=== PATIENT | male | born 1965 | race Hispanic/Latino ===

== ENCOUNTER 2019-08-18 10:40 | Emergency (ER) | payer OTHER ==
[~2019-08-18] VITALS: Ht 165.1 cm; Wt 68.0 kg
--- NOTE | 2019-08-18 11:57 | Diagnostic Imaging Report ---
EXAMINATION: CHEST SINGLE (PORTABLE) INDICATION: Pneumonia, cough COMPARISON: None FINDINGS: LINES/TUBES:None LUNGS:The lungs are moderately inflated. Extensive multifocal predominantly peripheral consolidative airspace opacities. PLEURA:No pleural effusion or pneumothorax. MEDIASTINUM:The cardiomediastinal silhouette appears normal in size and shape. BONES/SOFT TISSUES:No acute osseous injury. ABDOMEN:No free air under the diaphragm. IMPRESSION: Extensive multifocal predominantly peripheral consolidative airspace opacities concerning for multifocal pneumonia. Signed by: Jcarlos Vasquez MD on 08/18/2019 11:53 AM
[2019-08-18 12:03] LABS: BASOPHILS # (AUTO) 0.1 (0.0-0.1); BASOPHILS % 0.9 % (0.0-1.0); EOSINOPHILS # (AUTO) 0.5 (0.0-0.4); EOSINOPHILS % 4.1 % (0.0-6.0); HEMATOCRIT 47.5 % (38.2-49.6); HEMOGLOBIN 15.5 g/dL (14.0-18.0); LYMPHOCYTES # (AUTO) 2.1 (1.0-3.2); LYMPHOCYTES % 17.5 % (18.0-39.1); MEAN CORPUSCULAR HEMOGLOBIN 29.6 pg (28-32); MEAN CORPUSCULAR HGB CONC 32.6 g/dL (31-35); MEAN CORPUSCULAR VOLUME 90.6 fL (81-99); NEUTROPHILS # (AUTO) 8.2 (2.1-6.9); NEUTROPHILS % 67.8 % (38.7-80.0); PLATELET COUNT 328 x10e3/uL (140-360); RED BLOOD COUNT 5.24 x10e6/uL (4.3-5.7)
--- NOTE | 2019-08-18 12:23 | Emergency Department Note ---
History of Present Illnes History of Present Illness Chief Complaint: COVID PUI History of Present Illness This is a 54 year old male sent to the ER by PCP for Covid 19 symptoms, patient admits to cough fever and generalized malaise/weakness. Chief Complaint Comment sats 93% room air, coughing. weak, sob. aaox4. ambulat ory. 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 Any updates have been documented here. Past Medical History Recent Fever: No Clinical Suspicion of Infectio: Yes New/Unexplained Change in Ment: No Past Medical History: Hypothyroidism Past Surgical History: None Social History Smoking Cessation: Never Smoker Counseling Performed: No Alcohol Use: None Any Illegal Drug Use: No Other Any Pre-Existing Lines (PICC,: No Review of Systems Review of Systems Constitutional: Reports as per HPI, Reports chills, Reports fever EENTM: Reports no symptoms Cardiovascular: Reports no symptoms Respiratory: Reports cough, Reports pain with cough, Reports dyspnea Gastrointestinal: Reports no symptoms Genitourinary: Reports no symptoms Musculoskeletal: Reports no symptoms Integumentary: Reports no symptoms Neurological: Reports no symptoms Psychological: Reports no symptoms Endocrine: Reports no symptoms Hematological/Lymphatic: Reports no symptoms Physical Exam Related Data Allergies: Coded Allergies: No Known Allergies (Unverified , 08/18/19) Triage Vital Signs Vital Signs Date Time Temp Pulse Resp B/P (MAP) Pulse Ox O2 Delivery O2 Flow Rate FiO2 08/18/19 10:48 100.2 110 22 110/71 93 Room Air Vital signs reviewed: Yes Physical Exam CONSTITUTIONAL Constitutional: Present well-developed, Present well-nourished HENT HENT: Present normocephalic, Present atraumatic, Present oropharynx clear/moist, Present nose normal HENT L/R: Present left ext ear normal, Present right ext ear normal EYES Eyes: Reports PERRL, Reports conjunctivae normal NECK Neck: Present ROM normal PULMONARY Pulmonary: Present effort normal, Present respiratory distress CARDIOVASCULAR Cardiovascular: Present regular rhythm, Present heart sounds normal, Present capillary refill normal, Present normal rate GASTROINTESTINAL Abdominal: Present soft, Present nontender, Present bowel sounds normal GENITOURINARY Genitourinary: Present exam deferred SKIN Skin: Present warm, Present dry MUSCULOSKELETAL Musculoskeletal: Present ROM normal NEUROLOGICAL Neurological: Present alert, Present oriented x 3, Present no gross motor or sensory deficits PSYCHOLOGICAL Psychological: Present mood/affect normal, Present judgement normal Results Laboratory Result Diagram: 08/18/19 1052 Laboratory Laboratory Tests Test 08/18/19 10:52 White Blood Count 12.06 x10e3/uL (4.8-10.8) Red Blood Count 5.24 x10e6/uL (4.3-5.7) Hemoglobin 15.5 g/dL (14.0-18.0) Hematocrit 47.5 % (38.2-49.6) Mean Corpuscular Volume 90.6 fL (81-99) Mean Corpuscular Hemoglobin 29.6 pg (28-32) Mean Corpuscular Hemoglobin Concent 32.6 g/dL (31-35) Red Cell Distribution Width 14.0 % (11.7-14.4) Platelet Count 328 x10e3/uL (140-360) Neutrophils (%) (Auto) 67.8 % (38.7-80.0) Lymphocytes (%) (Auto) 17.5 % (18.0-39.1) Monocytes (%) (Auto) 8.0 % (4.4-11.3) Eosinophils (%) (Auto) 4.1 % (0.0-6.0) Basophils (%) (Auto) 0.9 % (0.0-1.0) Neutrophils # (Auto) 8.2 (2.1-6.9) Lymphocytes # (Auto) 2.1 (1.0-3.2) Monocytes # (Auto) 1.0 (0.2-0.8) Eosinophils # (Auto) 0.5 (0.0-0.4) Basophils # (Auto) 0.1 (0.0-0.1) Absolute Immature Granulocyte (auto 0.20 x10e3/uL (0-0.1) Lab results reviewed: Yes Imaging Imaging results reviewed: Yes Impressions IMPRESSION: Extensive multifocal predominantly peripheral consolidative airspace opacities concerning for multifocal pneumonia. Signed by: Jacrlos Vasquez MD on 08/18/2019 11:53 AM Assessment & Plan Medical Decision Making MDM 54-year-old well-appearing male arrives to the ED with complaints of cough fever loss of taste and smell. Patient is clinically presenting with signs and symptoms consistent with Covid 19. Patient informed he is positive until proven otherwise. Patient's oxygen saturation remained 93-95% even on exertion, no evidence of tachypnea or dyspnea noted in the ED. Spoke present length about the importance of sleeping on his stomach and rotating from side to side. Z-Darling given, signs and symptoms for return discussed. In the light of the Covid pandemic, disaster medicine care was given- Patient's imaging reviewed,- chest x-ray shows multilobar PNA . Patient clinically appears well, outpatient pulmonary follow-up given. The red flags for return to emergency department given. Patient understands the emergency department is open at all times to serve his needs as well as the needs of the community and given that he requires no supplemental oxygen and is speaking in full sentences with no distress he is stable to go home and quarantine. Assessment & Plan Final Impression: (1) COVID-19 Depart Disposition: HOME, SELF-CARE Last Vital Signs Date Time Temp Pulse Resp B/P (MAP) Pulse Ox O2 Delivery O2 Flow Rate FiO2 08/18/19 10:48 100.2 110 22 110/71 93 Room Air Home Meds Active Scripts Dexamethasone (Decadron) 6 Mg Tablet, 1 TAB PO DAILY, #5 Prov:LEI OLIVAREZ DO 08/18/19 Azithromycin (Z-DARLING) 250 Mg Tablet, 1 PKG PO DIRECTED, #1 PKG 0 Refills Prov:LEI OLIVAREZ DO 08/18/19 LEI OLIVAREZ DO Aug 18, 2019 12:23
[2019-08-18 12:29] LABS: ALANINE AMINOTRANSFERASE 53 IU/L (0-55); ALBUMIN/GLOBULIN RATIO 0.7 (0.8-2.0); ALKALINE PHOSPHATASE 121 IU/L (40-150); ANION GAP 11.7 mmol/L (8-16); BLOOD UREA NITROGEN 15 mg/dL (7-26); BUN/CREATININE RATIO 18 (6-25); CALCIUM 8.7 mg/dL (8.4-10.2); CARBON DIOXIDE 21 mmol/L (22-29); CHLORIDE 105 mmol/L (98-107); CREATINE KINASE 42 IU/L (30-200); CREATININE, SERUM 0.85 mg/dL (0.72-1.25); EST GLOMERULAR FILTRATION RATE > 60 ML/MIN (60-); GLUCOSE 123 mg/dL (74-118); POTASSIUM 3.7 mmol/L (3.5-5.1); SODIUM 134 mmol/L (136-145)
[2019-08-18] MEDS ORDERED: DECADRON6 MG PO (15:03)
[2019-08-18] MEDS ORDERED: AZITHROMYCIN250 MG PO (15:03)
--- NOTE | 2019-08-22 07:40 | NUR ---
Notified about his positive results today by Dr. Smith.
== END 2019-08-18 16:05 | disposition home or self-care (01) ==
LOC: ER 11:50
DX: U07.1 COVID-19 (principal); R50.9 Fever, unspecified; R05 Cough; R53.1 Weakness; E03.9 Hypothyroidism, unspecified
CPT/HCPCS: 36415; 71045; 80053; 82550; 82553; 84484; 85025; 87635; 94760; 99283

== ENCOUNTER 2019-08-24 18:26 | Emergency (ER) | payer SELFPAY ==
[~2019-08-24] VITALS: Ht 165.1 cm; Wt 68.0 kg
[~2019-08-24 18:26] MED LIST: AZITHROMYCIN250 MG PO; DECADRON6 MG PO
--- NOTE | 2019-08-24 20:34 | Diagnostic Imaging Report ---
EXAMINATION: CHEST SINGLE (PORTABLE) INDICATION: Covid pneumonia COMPARISON: Chest x-ray 08/18/2019 FINDINGS: TUBES and LINES: None. LUNGS: Extensive bilateral airspace opacities. Near complete collapse of the left upper lobe. PLEURA: New large left pneumothorax. HEART AND MEDIASTINUM: Mild rightward mediastinal shift. BONES AND SOFT TISSUES: No acute osseous lesion. Soft tissues are unremarkable. Degenerative changes UPPER ABDOMEN: No free air under the diaphragm. IMPRESSION: New large left pneumothorax with mild right mediastinal shift concerning for tension. Extensive airspace disease/pneumonia. These findings were discussed with Dr. Read at 8:25 PM on 08/24/[address] Chester via telephone. Signed by: Germán Chester DO on 08/24/2019 8:30 PM
--- NOTE | 2019-08-24 22:53 | Diagnostic Imaging Report ---
EXAMINATION: CHEST SINGLE (PORTABLE) INDICATION: Pneumothorax COMPARISON: Chest x-ray 08/24/2019 FINDINGS: TUBES and LINES: Minimal left upper lung pleural catheter. LUNGS: Improved expansion of the left lower upper lobe which remains partially collapsed, improved description of the left lower lobe. Extensive hazy airspace disease, worse in the right lung. PLEURA: Decreased size of moderate left pneumothorax. HEART AND MEDIASTINUM: The cardiomediastinal silhouette is unremarkable. BONES AND SOFT TISSUES: No acute osseous lesion. Soft tissues are unremarkable. UPPER ABDOMEN: No free air under the diaphragm. IMPRESSION: Decreased size of moderate left pneumothorax status post percutaneous left pleural catheter placement. Mild improvement of left lung expansion. Multifocal pneumonia. Signed by: Germán Chester DO on 08/24/2019 10:50 PM
[2019-08-24 23:06] LABS: BASOPHILS # (AUTO) 0.1 (0.0-0.1); BASOPHILS % 0.9 % (0.0-1.0); EOSINOPHILS # (AUTO) 0.4 (0.0-0.4); EOSINOPHILS % 2.5 % (0.0-6.0); HEMATOCRIT 47.2 % (38.2-49.6); LYMPHOCYTES # (AUTO) 2.1 (1.0-3.2); LYMPHOCYTES % 15.6 % (18.0-39.1); MEAN CORPUSCULAR HEMOGLOBIN 29.7 pg (28-32); MEAN CORPUSCULAR HGB CONC 31.8 g/dL (31-35); MEAN CORPUSCULAR VOLUME 93.5 fL (81-99); MONOCYTES % 7.4 % (4.4-11.3); NEUTROPHILS % 72.7 % (38.7-80.0); PLATELET COUNT 244 x10e3/uL (140-360); RED BLOOD COUNT 5.05 x10e6/uL (4.3-5.7); RED CELL DISTRIBUTION WIDTH 14.4 % (11.7-14.4)
--- NOTE | 2019-08-24 23:15 | Diagnostic Imaging Report ---
EXAMINATION: CHEST SINGLE (PORTABLE) INDICATION: Chest tube insertion, verify position COMPARISON: Chest x-ray 08/24/2019 20:59 FINDINGS: TUBES and LINES: Interval removal of left upper pleural catheter. Lower pleural catheter is mostly outside of the pleural space with only 1.3 cm of catheter within the pleural space. LUNGS: The left upper lobe is mostly collapsed in the left lower lobe is partially collapsed. Partial collapse of the extensive airspace haziness. Low right lung volume. PLEURA: Increased size of largest pneumothorax.. HEART AND MEDIASTINUM: The cardiomediastinal silhouette is unremarkable. BONES AND SOFT TISSUES: No acute osseous lesion. Soft tissues are unremarkable. UPPER ABDOMEN: No free air under the diaphragm. IMPRESSION: Suboptimal position of the lower pleural catheter, mostly outside of the pleural space, with increased size of the large left pneumothorax and worsening left lung collapse. This finding was discussed with Dr. Read at 11:11 PM on 08/24/[address] Chester via telephone. Extensive airspace disease. Signed by: Germán Chester DO on 08/24/2019 11:12 PM
[2019-08-24 23:16] LABS: ALANINE AMINOTRANSFERASE 35 IU/L (0-55); ALBUMIN 3.5 g/dL (3.5-5.0); ALBUMIN/GLOBULIN RATIO 0.8 (0.8-2.0); ALKALINE PHOSPHATASE 98 IU/L (40-150); ANION GAP 11.8 mmol/L (8-16); BLOOD UREA NITROGEN 16 mg/dL (7-26); BUN/CREATININE RATIO 19 (6-25); CALCIUM 9.8 mg/dL (8.4-10.2); CARBON DIOXIDE 27 mmol/L (22-29); CHLORIDE 104 mmol/L (98-107); CREATINE KINASE 37 IU/L (30-200); CREATININE, SERUM 0.84 mg/dL (0.72-1.25); EST GLOMERULAR FILTRATION RATE > 60 ML/MIN (60-); GLUCOSE 101 mg/dL (74-118); POTASSIUM 4.8 mmol/L (3.5-5.1); SODIUM 138 mmol/L (136-145)
--- NOTE | 2019-08-24 23:39 | Emergency Department Note ---
History of Present Illnes History of Present Illness Chief Complaint: COVID PUI History of Present Illness This is a 54 year old male arrives to the ED with complaints of cough for several days, patient's, positive states the shortness of breath is worsening. Chief Complaint Comment C/O PRODUCTIVE COUGH AND BACK PAIN THAT STARTED TODAY STATES HE NOTICED SOME BLOOD IN PHLEGM DENIES FEVER/N/V/D/HURLEY/MUSCLE ACHES/CHILLS STATES HE TESTED POSITIVE COVID LAST SUN Historian: Patient Arrival Mode: Car Onset (how long ago): day(s) Severity: mild Onset quality: gradual Duration (how long): day(s) Progression: worsening Chronicity: new Context: Reports recent illness Past Medical/Family History Physician Review I have reviewed the patient's past medical and family history. Any updates have been documented here. Past Medical History Recent Fever: No Clinical Suspicion of Infectio: Yes New/Unexplained Change in Ment: No Past Medical History: Hypothyroidism Past Surgical History: None Social History Smoking Cessation: Never Smoker Counseling Performed: No Alcohol Use: None Any Illegal Drug Use: No Physically hurt or threatened: No Other Any Pre-Existing Lines (PICC,: No Review of Systems Review of Systems Constitutional: Reports as per HPI EENTM: Reports no symptoms Cardiovascular: Reports no symptoms Respiratory: Reports as per HPI, Reports cough, Reports dyspnea Gastrointestinal: Reports no symptoms Genitourinary: Reports no symptoms Musculoskeletal: Reports no symptoms Integumentary: Reports no symptoms Neurological: Reports no symptoms Psychological: Reports no symptoms Endocrine: Reports no symptoms Hematological/Lymphatic: Reports no symptoms Physical Exam Related Data Allergies: Coded Allergies: No Known Allergies (Unverified , 08/18/19) Triage Vital Signs Vital Signs Date Time Temp Pulse Resp B/P (MAP) Pulse Ox O2 Delivery O2 Flow Rate FiO2 08/24/19 18:31 99.6 109 20 108/73 93 Room Air Vital signs reviewed: Yes Physical Exam CONSTITUTIONAL Constitutional: Present well-developed, Present well-nourished, Present ill appearing HENT HENT: Present normocephalic, Present atraumatic, Present oropharynx clear/moist, Present nose normal HENT L/R: Present left ext ear normal, Present right ext ear normal EYES Eyes: Reports PERRL, Reports conjunctivae normal NECK Neck: Present ROM normal PULMONARY Pulmonary: Present effort normal, Present respiratory distress, Present other (decreased breath sounds of the left lung fortune) CARDIOVASCULAR Cardiovascular: Present regular rhythm, Present heart sounds normal, Present capillary refill normal, Present normal rate GASTROINTESTINAL Abdominal: Present soft, Present nontender, Present bowel sounds normal GENITOURINARY Genitourinary: Present exam deferred SKIN Skin: Present warm, Present dry MUSCULOSKELETAL Musculoskeletal: Present ROM normal NEUROLOGICAL Neurological: Present alert, Present oriented x 3, Present no gross motor or sensory deficits PSYCHOLOGICAL Psychological: Present mood/affect normal, Present judgement normal Results Laboratory Result Diagram: 08/24/19200908/24/192009 Laboratory Laboratory Tests Test 08/24/19 20:10 White Blood Count 13.74 x10e3/uL (4.8-10.8) Red Blood Count 5.05 x10e6/uL (4.3-5.7) Hemoglobin 15.0 g/dL (14.0-18.0) Hematocrit 47.2 % (38.2-49.6) Mean Corpuscular Volume 93.5 fL (81-99) Mean Corpuscular Hemoglobin 29.7 pg (28-32) Mean Corpuscular Hemoglobin Concent 31.8 g/dL (31-35) Red Cell Distribution Width 14.4 % (11.7-14.4) Platelet Count 244 x10e3/uL (140-360) Neutrophils (%) (Auto) 72.7 % (38.7-80.0) Lymphocytes (%) (Auto) 15.6 % (18.0-39.1) Monocytes (%) (Auto) 7.4 % (4.4-11.3) Eosinophils (%) (Auto) 2.5 % (0.0-6.0) Basophils (%) (Auto) 0.9 % (0.0-1.0) Neutrophils # (Auto) 10.0 (2.1-6.9) Lymphocytes # (Auto) 2.1 (1.0-3.2) Monocytes # (Auto) 1.0 (0.2-0.8) Eosinophils # (Auto) 0.4 (0.0-0.4) Basophils # (Auto) 0.1 (0.0-0.1) Absolute Immature Granulocyte (auto 0.12 x10e3/uL (0-0.1) Sodium Level 138 mmol/L (136-145) Potassium Level 4.8 mmol/L (3.5-5.1) Chloride Level 104 mmol/L (98-107) Carbon Dioxide Level 27 mmol/L (22-29) Anion Gap 11.8 mmol/L (8-16) Blood Urea Nitrogen 16 mg/dL (7-26) Creatinine 0.84 mg/dL (0.72-1.25) Estimat Glomerular Filtration Rate > 60 ML/MIN (60-) BUN/Creatinine Ratio 19 (6-25) Glucose Level 101 mg/dL (74-118) Calcium Level 9.8 mg/dL (8.4-10.2) Total Bilirubin 0.5 mg/dL (0.2-1.2) Aspartate Amino Transf (AST/SGOT) 23 IU/L (5-34) Alanine Aminotransferase (ALT/SGPT) 35 IU/L (0-55) Alkaline Phosphatase 98 IU/L (40-150) Creatine Kinase 37 IU/L (30-200) Creatine Kinase MB 0.60 ng/mL (0-5.0) Troponin I 0.010 ng/mL (0-0.300) Total Protein 7.8 g/dL (6.5-8.1) Albumin 3.5 g/dL (3.5-5.0) Globulin 4.3 g/dL (2.3-3.5) Albumin/Globulin Ratio 0.8 (0.8-2.0) Lab results reviewed: Yes Imaging Imaging results reviewed: Yes Procedures Chest Tube Placement Chest Tube : Chest tube: chest tube 1 Chest tube location: left, mid axillary line Chest tube prep: betadine prep Local anesthetic: lidocaine 1% Incision made with: #10 blade Post procedure: sutured to skin Tube drainage: none Initial drainage amount (mL): 20 Post procedure chest xray: Yes Patient tolerated procedure: Yes Critical Care Time Total Critical Care Time (min): 65 Critical care time exclusive o: separately billable procedures Critcal care necessary due to: respiratory failure Assessment & Plan Medical Decision Making MDM 54-year-old male arrives to the ED with complaints of shortness of breath dyspnea, has a diagnosis of Covid 19. Patient to have marked left-sided pneumothorax with mediastinal shift, emergent bedside needle decompression done, take toe placed on minimal improvement noted. Patient's cardiac formal chest tube was subsequently resulted in appropriate reexpansion of the left. Patient transferred to [facility] for further workup and management. Assessment & Plan Final Impression: (1) Acute respiratory distress (2) Pneumothorax (3) Tension pneumothorax (4) COVID-19 Depart Disposition: ADMITTED Last Vital Signs Date Time Temp Pulse Resp B/P (MAP) Pulse Ox O2 Delivery O2 Flow Rate FiO2 08/24/19 22:36 89 24 94/79 95 08/24/19 18:31 99.6 Room Air Home Meds Active Scripts Dexamethasone (Decadron) 6 Mg Tablet, 1 TAB PO DAILY, #5 Prov:LEI OLIVAREZ DO 08/18/19 Azithromycin (Z-DARLING) 250 Mg Tablet, 1 PKG PO DIRECTED, #1 PKG 0 Refills Prov:LEI OLIVAREZ DO 08/18/19 LEI OLIVAREZ DO Aug 24, 2019 23:39
--- NOTE | 2019-08-25 00:16 | NUR ---
assumed care of patient, report received from robb melchor
--- NOTE | 2019-08-25 00:52 | Diagnostic Imaging Report ---
EXAMINATION: CHEST SINGLE (PORTABLE) INDICATION: Chest tubes , pneumothorax COMPARISON: Chest x-ray 08/24/2019 FINDINGS: TUBES and LINES: Interval advancement of the left chest tube, now with tip at the left pleura, sidehole port within the pleural space. LUNGS/PLEURA: Mild decreased left pneumothorax and improvement in left upper and lower lobe expansion status post repositioning of the percutaneous left pleural. Extensive airspace haziness. Low lung volumes. HEART AND MEDIASTINUM: The cardiomediastinal silhouette is unremarkable. BONES AND SOFT TISSUES: No acute osseous lesion. Left chest wall subcutaneous emphysema.. UPPER ABDOMEN: No free air under the diaphragm. IMPRESSION: Slight decreased size of left pneumothorax and mildly improved expansion of the partially collapsed left upper and lower lobes, status post repositioning of the percutaneous left pleural. Extensive pneumonia. Signed by: Germán Chester DO on 08/25/2019 12:49 AM
[2019-08-25] MEDS ORDERED: SODIUM CHLORIDE 0.9% 50ML 50 ML ONE (02:23)
[2019-08-25] MEDS ORDERED: IOPAMIDOL 370 MG/ML 200 ML INFUS..BTL INJ ONE (02:24)
[2019-08-25] MEDS ORDERED: HYDROMORPHONE 1MG/1ML INJ ONE (02:42)
--- NOTE | 2019-08-25 02:43 | Diagnostic Imaging Report ---
EXAM: CT Chest WITH contrast 08/25/2019 1:50 AM INDICATION: Covid , pneumonia, pneumothorax, chest tube COMPARISON: Multiple chest x-rays in 08/24/2019 TECHNIQUE: Chest was scanned utilizing a multidetector helical scanner from the lung apex through the level of the adrenal glands with administration of IV contrast. Coronal and sagittal reformations were obtained. Routine protocol was performed. IV CONTRAST: 100 mL of Isovue 370 COMPLICATIONS: None RADIATION DOSE: Total DLP: 417 mGy*cm Estimated effective dose: (DLP x 0.014 x size factor) mSv CTDIvol has been reviewed. It is below the limits set by the Radiation Protocol Committee (RPC). Dose modulation, iterative reconstruction, and/or weight based adjustment of the mA/kV was utilized to reduce the radiation dose to as low as reasonably achievable. FINDINGS: LINES/ TUBES: The left chest tube traverses the fourth intercostal space and courses superiorly along the left parietal pleura. The appearance of a thin membrane overlies the chest to as it traverses superiorly, possibly the parietal pleura. LUNGS AND AIRWAYS: Partially collapsed left lower lobe and atelectasis in the left upper lobe. Low lung volumes. Extensive bilateral patchy ground glass opacities and scattered areas of atelectasis. Airways are normal. PLEURA: Large left pneumothorax. Trace fluid layering in the left HEART AND MEDIASTINUM: The thyroid gland is normal. No mediastinal, hilar or axillary lymphadenopathy. The heart is normal in size. There is no pericardial effusion. Moderate amount of pneumomediastinum. Mild rightward mediastinal deviation. UPPER ABDOMEN: Unremarkable. BONES: The visualized bony thorax is within normal limits. SOFT TISSUES: Extensive left chest wall subcutaneous emphysema extends to the infraclavicular soft tissues and into the mediastinum. IMPRESSION: Large left pneumothorax with partial left lower lobe collapse and mild rightward mediastinal shift. The percutaneous left chest tube courses superiorly along the left parietal pleura. The tube may be extrapleural, considering that the pneumothorax is large in spite of chest tube to suction, and there appears to be a thin membrane overlying the distal aspect of the chest tube which could represent the parietal pleura. An alternative explanation for the lack of reexpansion of the left lower lobe could be due to the extensive airspace disease and noncompliant lung. Trace left hemothorax. Extensive left chest wall subcutaneous emphysema extends to the infraclavicular soft tissues and into the mediastinum.. Extensive bilateral airspace disease/multifocal pneumonia and subsegmental atelectasis. Low lung volumes. Findings discussed with Dr. Read at 2:25 AM on 08/25/[address] Chester via telephone. Signed by: Germán Chester DO on 08/25/2019 2:40 AM
[2019-08-25] MEDS ORDERED: HYDROMORPHONE 1MG/1ML INJ IV STA (03:16)
--- NOTE | 2019-08-25 03:39 | Diagnostic Imaging Report ---
EXAMINATION: CHEST SINGLE (PORTABLE) INDICATION: Chest tube, pneumothorax COMPARISON: Chest CT 08/25/2019, chest x-ray 2019 FINDINGS: TUBES and LINES: New large bore left chest tube with tip projects in the left upper central hemithorax. LUNGS: Very low lung volumes. Extensive hazy opacities throughout the lungs. Persistent partially collapsed left lower lobe collapse. PLEURA: Moderate left pneumothorax, decreased compared to earlier chest CT. HEART AND MEDIASTINUM: The cardiomediastinal silhouette is unremarkable. BONES AND SOFT TISSUES: No acute osseous lesion. Soft tissues are unremarkable. UPPER ABDOMEN: No free air under the diaphragm. IMPRESSION: Decreased size of moderate left pneumothorax compared to earlier chest CT. The lack of full reexpansion of the left lower lobe is likely due to noncompliant diseased lung. Low lung volumes with extensive airspace disease/infection. Signed by: Germán Chester DO on 08/25/2019 3:36 AM
[2019-08-25 04:21] VITALS: BP 120/96
== END 2019-08-25 03:30 | disposition other institution (70) ==
LOC: ER 18:32
DX: U07.1 COVID-19 (principal); J93.0 Spontaneous tension pneumothorax; R06.03 Acute respiratory distress; E03.9 Hypothyroidism, unspecified
CPT/HCPCS: 36415; 71045 ×2; 71260; 80053; 82550; 82553; 84484; 85025; 93005; 99284; J1170; Q9967